=== PATIENT | female | born 1980 | race Caucasian/White ===

== ENCOUNTER → 2016-08-22 | Outpatient (CLI) | payer BC ==
[~2016-08-22] MED LIST: CETI10TA84 PO; CHOL1TAB42 PO; CYAN10004 PO; FERR1TAB13 PO; FLUT0.15 INH; HYDR25TA4 PO; OXYC-57 PO; OXYC7.5T65 PO; POTA10CA28 PO; TAMS0.4C38 PO
--- NOTE | 2016-08-22 08:48 | DIAGNOSTIC IMAGING REPORT ---
KUB CLINICAL HISTORY: N20.0 Nephrolithiasis COMPARISON STUDY: 08/07/2016 FINDINGS: There are innumerable bilateral renal calculi. The previous identified calcification with thin the left pelvic basin is no longer visualized. This may represent a distal ureteral calculus. Other pelvic basin calcifications remain stable. There is no pathologic bowel dilatation. IMPRESSION: 1. Bilateral nephrolithiasis 2. The previously identified distal left ureteral calculus is no longer visualized Electronically signed by: Dionisio Bolivar M.D. 08/22/2016 8:46 AM
== END | disposition home or self-care (01) ==
LOC: C.RAD 08:16
PROVIDERS: ATTEND Urology
DX: N20.0 Calculus of kidney (principal)

== ENCOUNTER → 2017-02-26 | Outpatient (CLI) | payer BC ==
--- NOTE | 2017-02-26 09:18 | DIAGNOSTIC IMAGING REPORT ---
KUB CLINICAL HISTORY: Nephrolithiasis. Urinary tract infection. FINDINGS: 2 AP supine abdominal radiographs are compared to study dated 08/22/2016 and correlated with abdominal CT dated 11/25/2014. There are numerous (greater than 20) small bilateral nonobstructing renal calculi. The largest stone is on the left an measures up to 7 mm. A 5 mm calcification in the right pelvis projecting over the right vesicoureteral junction was not seen on 08/22/2016. Additional pelvic phleboliths are similar to previous. There is a nonobstructed abdominal bowel gas pattern. Moderate constipation is observed. The bony structures appear intact. IMPRESSION: 1. There are numerous bilateral nonobstructing renal calculi, similar in appearance to prior studies. 2. There is a 5 mm calcification projecting over the right vesicoureteral junction. This is new from 08/22/2016 and likely represents a distal right ureteral stone. Correlation with clinical findings and urinalysis will be required. Electronically signed by: Ulises Huang M.D. 02/26/2017 9:17 AM Dictated Date/Time: 02/26/2017 9:13 AM
--- NOTE | 2017-02-26 10:54 | DIAGNOSTIC IMAGING REPORT ---
TWO VIEW CHEST CLINICAL HISTORY: Preoperative examination. Nephrolithiasis. FINDINGS: PA and lateral chest radiographs are compared to study dated 01/30/2016. The cardiomediastinal silhouette is unremarkable. The lungs and pleural spaces are clear. There is no pneumothorax. The bony thorax appears intact. Cholecystectomy clips are identified in the right upper quadrant. IMPRESSION: No active disease in the chest. Electronically signed by: Ulises Huang M.D. 02/26/2017 10:53 AM Dictated Date/Time: 02/26/2017 10:52 AM
== END | disposition home or self-care (01) ==
LOC: C.RAD 08:30
PROVIDERS: ATTEND Urology
DX: N39.0 Urinary tract infection, site not specified (principal); N20.0 Calculus of kidney

== ENCOUNTER → 2017-02-26 | Outpatient (CLI) | payer BC ==
[2017-02-26 12:21] LABS: BASO % 0.5 %; BASO ABS # 0.04 K/uL (0-0.2); COMPLETE YES; EOS % 2.2 %; HEMATOCRIT 41.3 % (37-47); IG% 0.3 %; LYMPH ABS # 2.43 K/uL (1.2-3.4); MEAN CELL VOLUME 85.5 fL (80-100); MEAN CORPUSCULAR HEMOGLOBIN 29.6 pg (25-34); MEAN CORPUSCULAR HGB CONC 34.6 g/dl (32-36); MEAN PLATELET VOLUME 10.2 fL (7.4-10.4); MONO % 8.2 %; NEUT % 57.8 %; PLATELET COUNT 317 K/uL (130-400); RED BLOOD COUNT 4.83 M/uL (4.2-5.4); WHITE BLOOD COUNT 7.84 K/uL (4.8-10.8)
[2017-02-26 12:58] LABS: BLOOD UREA NITROGEN 14 mg/dl (7-18); BUN/CREATININE RATIO 23.2 (10-20); CALCIUM 9.4 mg/dl (8.5-10.1); CARBON DIOXIDE 29 mmol/L (21-32); CHLORIDE 102 mmol/L (98-107); CREATININE 0.61 mg/dl (0.60-1.20); GLUCOSE 71 mg/dl (70-99); POTASSIUM 3.7 mmol/L (3.5-5.1); SODIUM 138 mmol/L (136-145)
== END | disposition home or self-care (01) ==
LOC: C.CPL 10:13
PROVIDERS: ATTEND Urology
DX: N20.0 Calculus of kidney (principal); N39.0 Urinary tract infection, site not specified

== ENCOUNTER → 2017-03-01 | Day surgery (SDC) | payer BC ==
[2017-02-26 11:00] VITALS: Ht 175.3 cm; Wt 88.2 kg
[~2017-03-01] VITALS: Ht 175.3 cm; Wt 88.2 kg
[~2017-03-01] MED LIST changes: +ATROPINE SULFATE 0.1 MG/ML 5ML SYR IV PRN; +CIPROFLOXACIN 400MG / D5W IV SCH; +DEXAMETHASONE SOD INJ 4 MG/ML VIAL ONE; +EpHEDrine SULFATE INJ 50 MG/ML AMP IV PRN; +FENTANYL CITRATE INJ 50 MCG/1 ML 2 ML VIAL IV PRN; +FENTANYL CITRATE INJ 50 MCG/1 ML 2 ML VIAL ONE; +LACTATED RINGER'S 1000ML 1,000 ML IV SCH; +LIDOCAINE HCL 2% 2 ML VIAL (20MG/ML) ONE; +MIDAZOLAM HCL 1 MG/ML 2ML VIAL ONE; +ONDANSETRON INJ 2 MG/ML 2 ML VIAL IV PRN; +ONDANSETRON INJ 2 MG/ML 2 ML VIAL ONE; -OXYC-57 PO; +OXYCODONE/ACETAMINOPHEN 5-325 TAB PO PRN; -POTA10CA28 PO; +PROMETHAZINE HCL INJ 6.25 MG in SODIUM CHLORIDE 0.9% 50ML 50 ML IV PRN; +PROPOFOL IV EMULSION 10 MG/ML 20 ML VIAL IV ONE
--- NOTE | 2017-03-01 08:56 | DIAGNOSTIC IMAGING REPORT ---
KUB CLINICAL HISTORY: N20.0 [id number] COMPARISON STUDY: 02/26/2017 FINDINGS: There are innumerable bilateral renal calculi. There is no pathologic bowel dilatation. Pelvic basin calcifications remain similar in orientation to the prior study. As was previously stated, there is a 5 mm right pelvic basin calcification which was not present in August 2016. This may represent a distal right ureteral calculus. IMPRESSION: 1. Bilateral nephrolithiasis 2. Possible 5 mm distal right ureteral calculus Electronically signed by: Dionisio Bolivar M.D. 03/01/2017 8:55 AM Dictated Date/Time: 03/01/2017 8:53 AM
--- NOTE | 2017-03-01 09:15 | History & Physical Bridge Note ---
H&P Re-Evaluation Bridge Note: I have examined the patient, reviewed the History & Physical and in the interval since the performance of the History & Physical I have noted the following changes of clinical significance: No changes noted
--- NOTE | 2017-03-01 09:30 | [facility] Operative Report ---
Operative Report Operative Date Mar 01, 2017. Pre-Operative Diagnosis R distal ureteral stone, bilateral nonobstructive renal stones Post-Operative Diagnosis Same Procedure(s) Performed R distal ureteral ESWL Surgeon Darren Alcaraz Stripper And Opaquer Apprentice Surgeon(s) NA Estimated Blood Loss NA Findings Fair stone fragmentation on fluoro Specimens NA Drains NA Anesthesia GALMA Disposition Recovery Room / PACU Indications R distal ureteral stone Description of Procedure The patient was brought to the litho suite. He was correctly identified and the stone was visualized on his most recent x-rays. After the correct time out was performed the patient was positioned over the therapy head. An adequate level of anesthesia was administered. The extracorporeal shockwave lithotripsy treatment was then commenced. Please see the [place] [facility] Stone Management sheet for complete treatment summary. After completion of the procedure the patient was taken to the recovery room in stable condition. I attest to the content of the Intraoperative Record and any orders documented therein. Any exceptions are noted below. I attest to the content of the Intraoperative Record and any orders documented therein. Any exceptions are noted below.
--- NOTE | 2017-03-01 09:31 | Discharge Instructions ---
Discharge Instructions Date of Service Mar 01, 2017. Admission Reason for Admission: Stones Discharge Discharge Diagnosis / Problem: R distal ureteral stone s/p ESWL Discharge Goals Goal(s): Decrease discomfort, Improve function, Improve disease control, Therapeutic intervention Activity Recommendations Activity Limitations: as noted below Lifting Limitations: no more than 25 pounds, gradually increase as tolerated ( x 3 days) Exercise/Sports Limitations: rest today, gradually increase as tolerated (x 3 days) May Resume Sexual Activity: when tolerated Shower/Bathe: no limitations Driving or Machine Use: resume 1 day after discharge . Instructions / Follow-Up Instructions / Follow-Up Strain urine, bring fragments into postop visit Follow-up in office as scheduled, KUB Xray before visit as ordered Call office with questions Discharge Diet Recommended Diet: Regular Diet (good fluid intake) Procedures Procedures Performed: R distal ureteral ESWL Pending Studies Studies pending at discharge: no Medical Emergencies . Who to Call and When: Medical Emergencies: If at any time you feel your situation is an emergency, please call 911 immediately. . Non-Emergent Contact Non-Emergency issues call your: Urologist Call Non-Emergent contact if: you have a fever, temperature is above 101, your pain is not controlled, your pain is worsening, your pain is unusual for you, your pain is concerning you, you have any medication questions . . "Provider Documentation" section prepared by Gonzalo Banks. . VTE Core Measure Inpt VTE Proph given/why not?: [facility] [place] Drug Monitoring Program Search Results: patient reviewed within database, see additional documentation (last Rx at [facility] in Jul 2016)
--- NOTE | 2017-03-01 11:13 | [facility] Post Operative Brief Note ---
Immediate Operative Summary Operative Date Mar 01, 2017. Pre-Operative Diagnosis Right Renal Stone Post-Operative Diagnosis Same Procedure(s) Performed Right Extracorporeal Shock Wave Lithotripsy Surgeon Dr Nay Banks Freelance Digital Project Manager Surgeon(s) None Estimated Blood Loss 0 ml Findings Fair stone fragmentation on fluoro Specimens None Drains NA Anesthesia GALMA Complication(s) None Disposition Recovery Room / PACU
[2017-03-01 12:12] VITALS: TEMP 36.3
[2017-03-01 12:47] VITALS: BP 114/80; PULSE 61; O2SAT 100
--- NOTE | 2017-03-01 12:51 | Anesthesia Progress Nt - [facility] ---
Anesthesia Post Op Note Date & Time Mar 01, 2017 at 12:51 Vital Signs Pain Intensity: 4.0 Vital Signs Past 12 Hours Date Time Temp Pulse Resp B/P (MAP) Pulse Ox O2 Delivery O2 Flow Rate FiO2 03/01/17 12:47 61 16 114/80 (91) 100 Room Air 03/01/17 12:12 36.3 62 16 117/76 (90) 100 Room Air 03/01/17 12:08 62 85 03/01/17 12:08 62 03/01/17 12:06 124/73 03/01/17 12:04 36.5 99 Room Air 03/01/17 12:03 64 1 100 03/01/17 12:03 64 1 03/01/17 12:02 69 4 100 03/01/17 12:02 67 4 03/01/17 12:01 113/72 03/01/17 11:57 57 3 03/01/17 11:57 57 3 99 03/01/17 11:56 116/72 03/01/17 11:52 56 0 03/01/17 11:52 57 0 100 03/01/17 11:51 122/70 03/01/17 11:49 58 0 03/01/17 11:49 59 0 100 03/01/17 11:46 116/87 03/01/17 11:44 61 0 100 03/01/17 11:44 62 0 03/01/17 11:41 116/80 03/01/17 11:39 58 0 03/01/17 11:39 58 0 100 03/01/17 11:36 114/76 03/01/17 11:35 111/75 03/01/17 11:34 36.1 75 12 111/75 100 Mask 6 03/01/17 11:34 69 100 03/01/17 11:34 69 03/01/17 09:21 36.7 77 18 115/79 (91) 99 Room Air Notes Mental Status: alert / awake / arousable, participated in evaluation Pt Amnestic to Procedure: Yes Nausea / Vomiting: adequately controlled Pain: adequately controlled Airway Patency, RR, SpO2: stable & adequate BP & HR: stable & adequate Hydration State: stable & adequate Anesthetic Complications: no major complications apparent
== END | disposition home or self-care (01) ==
LOC: X.SURG 08:56
PROVIDERS: ATTEND Urology
DX: N20.2 Calculus of kidney with calculus of ureter (principal); Z87.440 Personal history of urinary (tract) infections; Q61.5 Medullary cystic kidney; Z86.32 Personal history of gestational diabetes; Z90.49 Acquired absence of other specified parts of digestive tract; Z90.710 Acquired absence of both cervix and uterus; Z98.84 Bariatric surgery status; Z84.1 Family history of disorders of kidney and ureter

== ENCOUNTER → 2017-03-12 | Outpatient (CLI) | payer BC ==
[~2017-03-12] MED LIST changes: -ATROPINE SULFATE 0.1 MG/ML 5ML SYR IV PRN; -CIPROFLOXACIN 400MG / D5W IV SCH; -DEXAMETHASONE SOD INJ 4 MG/ML VIAL ONE; -EpHEDrine SULFATE INJ 50 MG/ML AMP IV PRN; -FENTANYL CITRATE INJ 50 MCG/1 ML 2 ML VIAL IV PRN; -FENTANYL CITRATE INJ 50 MCG/1 ML 2 ML VIAL ONE; -LACTATED RINGER'S 1000ML 1,000 ML IV SCH; -LIDOCAINE HCL 2% 2 ML VIAL (20MG/ML) ONE; -MIDAZOLAM HCL 1 MG/ML 2ML VIAL ONE; -ONDANSETRON INJ 2 MG/ML 2 ML VIAL IV PRN; -ONDANSETRON INJ 2 MG/ML 2 ML VIAL ONE; +OXYC-57 PO; -OXYCODONE/ACETAMINOPHEN 5-325 TAB PO PRN; +POTA10CA28 PO; -PROMETHAZINE HCL INJ 6.25 MG in SODIUM CHLORIDE 0.9% 50ML 50 ML IV PRN; -PROPOFOL IV EMULSION 10 MG/ML 20 ML VIAL IV ONE
--- NOTE | 2017-03-12 18:25 | DIAGNOSTIC IMAGING REPORT ---
KUB CLINICAL HISTORY: 36 years-old Female presenting with N20.0 Nephrolithiasis. TECHNIQUE: Single supine view of the abdomen was obtained. COMPARISON: 03/01/2017. FINDINGS: Examination for calcification is degraded by moderate stool burden throughout the colon. Again demonstrated are multiple calcifications in the bilateral kidneys, unchanged in distribution. Previously noted calcification in the region of the right ureterovesical junction is no longer present. No new calcification along the course of the ureters. Multiple phleboliths noted in the right hemipelvis. Osseous structures normal. IMPRESSION: 1. Bilateral nephrolithiasis. 2. Previously noted calcification in the region of the right ureterovesical junction is no longer present suggesting passage of a right ureteral calculus. Electronically signed by: Felice Gregorio M.D. 03/12/2017 6:24 PM Dictated Date/Time: 03/12/2017 6:21 PM
[2017-03-12 19:04] LABS: MANUAL MICROSCOPIC REQUIRED? NO; REVIEW REQ? NO; URINE APPEARANCE CLEAR (CLEAR); URINE BILIRUBIN NEG (NEG); URINE COLOR YELLOW; URINE EPITHELIAL CELL AUTO >30 /lpf (0-5); URINE NITRITE NEG (NEG); UROBILINOGEN NEG (NEG)
[2017-03-12 19:22] LABS: BLOOD UREA NITROGEN 16 mg/dl (7-18); CALCIUM 9.2 mg/dl (8.5-10.1); CARBON DIOXIDE 24 mmol/L (21-32); CHLORIDE 104 mmol/L (98-107); CREATININE 0.86 mg/dl (0.60-1.20); GLUCOSE 135 mg/dl (70-99); PHOSPHORUS 2.5 mg/dl (2.5-4.9); SODIUM 138 mmol/L (136-145)
== END | disposition home or self-care (01) ==
LOC: C.LAB 17:35
PROVIDERS: ATTEND Internal Medicine Nephrology
DX: N20.0 Calculus of kidney (principal)

== ENCOUNTER → 2017-03-15 | Outpatient (CLI) | payer BC ==
[~2017-03-15] MED LIST changes: -OXYC7.5T65 PO
--- NOTE | 2017-03-15 10:04 | DIAGNOSTIC IMAGING REPORT ---
KUB CLINICAL HISTORY: Nephrolithiasis. FINDINGS: 2 AP supine abdominal radiographs are compared to study dated 03/12/2017 and correlated with abdominal CT dated 11/25/2014. There are numerous (greater than 20) small bilateral nonobstructing renal calculi. The largest stone is on the left and measures up to 6 mm. No calcifications are seen projecting along the course of the ureters. Pelvic phleboliths are similar to previous. There is a nonobstructed abdominal bowel gas pattern. Moderate constipation is observed. The bony structures appear intact. IMPRESSION: 1. There are numerous bilateral nonobstructing renal calculi, similar in appearance to prior studies. 2. There is no radiographic evidence of ureteral stone. Electronically signed by: Ulises Huang M.D. 03/15/2017 10:03 AM Dictated Date/Time: 03/15/2017 9:58 AM
== END | disposition home or self-care (01) ==
LOC: C.RAD 09:21
PROVIDERS: ATTEND Urology
DX: N20.0 Calculus of kidney (principal)

== ENCOUNTER → 2017-03-15 | Day surgery (SDC) | payer BC ==
[2017-03-14 11:57] VITALS: Ht 175.3 cm; Wt 88.2 kg
[~2017-03-15] VITALS: Ht 175.3 cm; Wt 88.2 kg
[~2017-03-15] MED LIST changes: +ATROPINE SULFATE 0.1 MG/ML 5ML SYR IV PRN; +CIPROFLOXACIN 400MG / D5W IV SCH; +DEXAMETHASONE SOD INJ 4 MG/ML VIAL ONE; +EpHEDrine SULFATE INJ 50 MG/ML AMP IV PRN; +FENTANYL CITRATE INJ 50 MCG/1 ML 2 ML VIAL IV PRN; +FENTANYL CITRATE INJ 50 MCG/1 ML 2 ML VIAL ONE; +FLUMAZENIL 0.1 MG/1 ML 10 ML VIAL IV PRN; +HYDROmorphone INJ 2 MG/ML SYR/VIAL IV PRN; +LABETALOL HCL IV 5 MG/ML 20ML IV PRN; +LACTATED RINGER'S 1000ML 1,000 ML IV SCH; +LIDOCAINE HCL 2% 2 ML VIAL (20MG/ML) ONE; +MEPERIDINE HCL 25 MG/ML CARP IV PRN; +MIDAZOLAM HCL 1 MG/ML 2ML VIAL ONE; +NALOXONE HCL 0.4 MG/1 ML VIAL/CARP IV PRN; +ONDANSETRON INJ 2 MG/ML 2 ML VIAL IV PRN; +ONDANSETRON INJ 2 MG/ML 2 ML VIAL ONE; +OXYCODONE/ACETAMINOPHEN 5-325 TAB PO PRN; +PHENYLEPHRINE 100MCG/ML 5ML SYR IV PRN; +PROPOFOL IV EMULSION 10 MG/ML 20 ML VIAL IV ONE
[2017-03-15 11:54] LABS: BUN/CREATININE RATIO 16.5 (10-20); CALCIUM 9.1 mg/dl (8.5-10.1); CREATININE 0.69 mg/dl (0.60-1.20); POTASSIUM 3.3 mmol/L (3.5-5.1)
--- NOTE | 2017-03-15 12:58 | [facility] Operative Report ---
Operative Report Operative Date Mar 15, 2017. Pre-Operative Diagnosis LEFT RENAL STONES Post-Operative Diagnosis SAME Procedure(s) Performed LEFT ESWL Surgeon FREDI Seam Rubbing Machine Operator Surgeon(s) NONE Estimated Blood Loss NONE Findings BILATERAL RENAL STONES Specimens NONE Drains NONE Anesthesia GENRERAL Complication(s) None Disposition Recovery Room / PACU Indications BILATERAL STONES FOR ESWL ON LEFT Description of Procedure Patient was identified in the preoperative holding area, appropriate informed consent was reviewed and completed and the patient was transported to the operating suite. Upon arrival appropriate preoperative antibiotics were administered and general anesthesia induced. The patient was placed in supine position and the stone was localized under fluoroscopy. A total of [__2500_] shocks were delivered to the stone. There appeared to be good fragmentation of the stone. Details of this procedure can be found on the [place] [facility] Stone Management information sheet. At the conclusion of the case the patient was extubated and taken to the PACU in stable condition. There were no complications. I attest to the content of the Intraoperative Record and any orders documented therein. Any exceptions are noted below.
--- NOTE | 2017-03-15 13:00 | Discharge Instructions-SurgCtr ---
Discharge Instructions Date of Service Mar 15, 2017. Visit Reason for Visit: Stones Discharge Discharge Diagnosis / Problem: STONES Discharge Goals Goal(s): Therapeutic intervention Activity Recommendations Activity Limitations: resume your previous activity (TAKE IT EASY TODAY) Anesthesia . Post Anesthesia Instructions: If you have had General Anesthesia or IV Sedation: * Do not drive today. * Resume driving when surgeon permits. * Do not make important decisions or sign legal documents today. * Call surgeon for: 1. Temperature elevations greater than 101 degrees F. 2. Uncontrollable pain. 3. Excessive bleeding. 4. Persistent nausea and vomiting. 5. Medication intolerance (nausea, vomiting or rash). * For nausea and vomiting use only clear liquids such as: tea, soda, bouillon until nausea subsides, then gradually increase diet as tolerated. * If you have any concerns or questions, call your surgeon's office. If physician is unavailable and it is an emergency, call 911 or go to the nearest emergency room. . Instructions / Follow-Up Instructions / Follow-Up MEDICATIONS: Resume previous medications unless instructed otherwise by your surgeon. Resume pre-ESWL medication except for aspirin, coumadin or other blood thinners. __ Toradol 10 mg every 6 hours for initial pain. __ Lortab 5 mg 1-2 every 4 hours for pain. _X_ Percocet 5 mg 1-2 every 4 hours for pain. __ Macrodantin 50 mg x 3 a day. __ Flomax 1 tab daily one half (1/2) hour after supper. SPECIAL CARE INSTRUCTIONS: 1. Get KUB (x-ray) _X_ day before or day of office visit and bring x-ray to office __ get x-ray 2 days before and tell office you are getting x-rays when you call for the appointment. 2. Strain ALL urine. 3. Please call if you have a fever, chills, severe pain, or constant dribbling of urine. 4. Office phone number . FOLLOW UP VISIT: Please call the office to schedule a follow-up appointment at . Diet Recommendations Home Diet: resume previous diet Procedures Procedures Performed: LEFT ESWL Pending Studies Studies pending at discharge: no Medical Emergencies . Who to Call and When: Medical Emergencies: If at any time you feel your situation is an emergency, please call 911 immediately. . Non-Emergent Contact Non-Emergency issues call your: Urologist Call Non-Emergent contact if: temperature is above 101.5, your pain is not controlled . . "Provider Documentation" section prepared by Tobi Jones. . [place] Drug Monitoring Program Search Results: patient reviewed within database
[2017-03-15 14:08] VITALS: TEMP 36.6
--- NOTE | 2017-03-15 14:11 | Anesthesia Progress Nt - [facility] ---
Anesthesia Post Op Note Date & Time Mar 15, 2017 at 14:11 Vital Signs Pain Intensity: 0 Vital Signs Past 12 Hours Date Time Temp Pulse Resp B/P (MAP) Pulse Ox O2 Delivery O2 Flow Rate FiO2 03/15/17 14:01 36.6 76 16 120/75 (94) 100 Room Air 03/15/17 13:56 68 17 03/15/17 13:56 69 17 119/78 99 03/15/17 13:51 69 14 123/68 98 03/15/17 13:51 70 14 03/15/17 13:46 91 15 03/15/17 13:46 89 15 137/86 99 03/15/17 13:41 69 13 126/66 100 03/15/17 13:41 69 13 03/15/17 13:36 70 13 124/64 100 03/15/17 13:36 69 13 03/15/17 13:35 74 14 99 03/15/17 13:35 74 14 03/15/17 13:31 119/75 03/15/17 13:30 36.5 78 16 119/75 100 Mask 5 03/15/17 11:01 36.9 67 16 104/79 (87) 100 Room Air Notes Mental Status: alert / awake / arousable, participated in evaluation Pt Amnestic to Procedure: Yes Nausea / Vomiting: adequately controlled Pain: adequately controlled Airway Patency, RR, SpO2: stable & adequate BP & HR: stable & adequate Hydration State: stable & adequate Anesthetic Complications: no major complications apparent
[2017-03-15 14:33] VITALS: BP 121/84; PULSE 76; O2SAT 100
== END | disposition home or self-care (01) ==
LOC: X.SURG 10:30
PROVIDERS: ATTEND Urology
DX: N20.0 Calculus of kidney (principal); Q61.5 Medullary cystic kidney; E87.6 Hypokalemia; N39.0 Urinary tract infection, site not specified; Z90.49 Acquired absence of other specified parts of digestive tract; Z98.84 Bariatric surgery status; Z90.710 Acquired absence of both cervix and uterus; Z98.51 Tubal ligation status; Z84.2 Family history of other diseases of the genitourinary system; Z84.1 Family history of disorders of kidney and ureter

== ENCOUNTER → 2017-03-26 | Outpatient (CLI) | payer BC ==
[~2017-03-26] MED LIST changes: -ATROPINE SULFATE 0.1 MG/ML 5ML SYR IV PRN; -CIPROFLOXACIN 400MG / D5W IV SCH; -DEXAMETHASONE SOD INJ 4 MG/ML VIAL ONE; -EpHEDrine SULFATE INJ 50 MG/ML AMP IV PRN; -FENTANYL CITRATE INJ 50 MCG/1 ML 2 ML VIAL IV PRN; -FENTANYL CITRATE INJ 50 MCG/1 ML 2 ML VIAL ONE; -FERR1TAB13 PO; -FLUMAZENIL 0.1 MG/1 ML 10 ML VIAL IV PRN; -HYDROmorphone INJ 2 MG/ML SYR/VIAL IV PRN; -LABETALOL HCL IV 5 MG/ML 20ML IV PRN; -LACTATED RINGER'S 1000ML 1,000 ML IV SCH; -LIDOCAINE HCL 2% 2 ML VIAL (20MG/ML) ONE; -MEPERIDINE HCL 25 MG/ML CARP IV PRN; -MIDAZOLAM HCL 1 MG/ML 2ML VIAL ONE; -NALOXONE HCL 0.4 MG/1 ML VIAL/CARP IV PRN; -ONDANSETRON INJ 2 MG/ML 2 ML VIAL IV PRN; -ONDANSETRON INJ 2 MG/ML 2 ML VIAL ONE; -OXYCODONE/ACETAMINOPHEN 5-325 TAB PO PRN; -PHENYLEPHRINE 100MCG/ML 5ML SYR IV PRN; -PROPOFOL IV EMULSION 10 MG/ML 20 ML VIAL IV ONE
--- NOTE | 2017-03-26 08:59 | DIAGNOSTIC IMAGING REPORT ---
KUB CLINICAL HISTORY: N20.0 [id number] COMPARISON STUDY: 03/15/2017 FINDINGS: There are in numerable bilateral renal calculi. No calcifications along the course of either ureter are visualized. Pelvic basin calcifications remain unchanged. These therefore likely represent phleboliths. An equivocal new left pelvic basin calcification is not confirmed on a spot film the pelvis and therefore likely represents overlying enteric contents IMPRESSION: Innumerable bilateral renal calculi. Electronically signed by: Dionisio Bolivar M.D. 03/26/2017 8:58 AM Dictated Date/Time: 03/26/2017 8:56 AM
== END | disposition home or self-care (01) ==
LOC: C.RAD 08:37
PROVIDERS: ATTEND Urology
DX: N20.0 Calculus of kidney (principal)

== ENCOUNTER → 2017-10-04 | Outpatient (CLI) | payer BC ==
[~2017-10-04] MED LIST changes: -OXYC-57 PO
--- NOTE | 2017-10-04 10:05 | DIAGNOSTIC IMAGING REPORT ---
L-SPINE MIN 4 VIEWS ROUTINE HISTORY: Pain LOW BACK PAIN COMPARISON: None. FINDINGS: There is no fracture. No subluxation. Disc spaces are preserved. Note is made of bilateral nephrocalcinosis. IMPRESSION: No fracture or subluxation within the lumbar spine. Negative study of the lumbar spine. Bilateral nephrocalcinosis The above report was generated using voice recognition software. It may contain grammatical, syntax or spelling errors. Electronically signed by: Mushtaq Cain M.D. 10/04/2017 10:03 AM Dictated Date/Time: 10/04/2017 10:02 AM
== END ==
LOC: C.RAD 09:30
PROVIDERS: ATTEND Family Medicine
DX: M54.5 Low back pain (principal); E83.59 Other disorders of calcium metabolism; N29 Other disorders of kidney and ureter in diseases classified elsewhere

== ENCOUNTER → 2017-12-12 | Outpatient (CLI) | payer BC ==
--- NOTE | 2017-12-12 10:35 | DIAGNOSTIC IMAGING REPORT ---
ULTRASOUND OF THE PELVIS CLINICAL HISTORY: Ovarian cyst. Pelvic pain. COMPARISON STUDY: Pelvic ultrasound dated 02/01/2016. TECHNIQUE: Real-time, grayscale, and color flow sonography of the pelvis is performed both transabdominally and endovaginally. Images are reviewed in the transverse and longitudinal planes. FINDINGS: Uterus: The uterus is surgically absent Ovaries: The ovaries are normal in size and morphology. The right ovary measures 4.7 x 3.2 x 4.6 cm and the left ovary measures 3.9 x 2.6 x 4.8 cm. There are bilateral ovarian follicles. No cyst is identified. Normal Doppler waveforms are shown within both ovaries. Pelvis: There is no free fluid in the cul-de-sac. No concerning adnexal lesion is seen. IMPRESSION: 1. No acute sonographic abnormality is identified in the pelvis. No ovarian cyst is seen. 2. Status post hysterectomy. Electronically signed by: Ulises Huang M.D. 12/12/2017 10:33 AM Dictated Date/Time: 12/12/2017 10:31 AM
== END | disposition home or self-care (01) ==
LOC: C.ULTR 09:39
PROVIDERS: ATTEND Family Medicine
DX: N83.201 Unspecified ovarian cyst, right side (principal); Z90.710 Acquired absence of both cervix and uterus

== ENCOUNTER → 2018-01-08 | Outpatient (CLI) | payer BC ==
--- NOTE | 2018-01-08 17:07 | DIAGNOSTIC IMAGING REPORT ---
(RENAL)RETROPERITON COMP CLINICAL HISTORY: 37 years-old Female presenting with NEPHROLITHIASIS. TECHNIQUE: Real-time grayscale and limited color Doppler ultrasound imaging of the kidneys and bladder was performed. COMPARISON: Plain radiograph from earlier the same day. FINDINGS: Right kidney: Hyperechogenicity of medullary pyramids. Right kidney measures 13.2 cm. Mild pelviectasis. No convincing evidence of calculus or mass. Left kidney: Hyperechogenicity of medullary pyramids. Left kidney measures 14.2 cm. Mild pelviectasis. The proximal left ureter is also mildly prominent measuring 8 mm in AP dimension. No convincing evidence of calculus or mass. Bladder: Normal. Bilateral ureteral jets present. Other: None. IMPRESSION: 1. Medullary nephrocalcinosis. This can be seen in the setting of hyperparathyroidism, medullary sponge kidney, type I renal tubular acidosis, milk alkali syndrome, sarcoidosis, and additional etiologies. Electronically signed by: Felice Gregorio M.D. 01/08/2018 5:06 PM Dictated Date/Time: 01/08/2018 5:01 PM
[2018-01-08 17:41] LABS: BASO % 0.3 %; BASO ABS # 0.02 K/uL (0-0.2); EOS % 2.5 %; EOS ABS # 0.18 K/uL (0-0.5); HEMATOCRIT 39.2 % (37-47); HEMOGLOBIN 13.5 g/dL (12.0-16.0); IG# 0.02 K/uL (0.00-0.02); LYMPH % 35.9 %; LYMPH ABS # 2.55 K/uL (1.2-3.4); MEAN CELL VOLUME 87.1 fL (80-100); MEAN CORPUSCULAR HGB CONC 34.4 g/dl (32-36); MEAN PLATELET VOLUME 10.1 fL (7.4-10.4); MONO % 5.3 %; MONO ABS # 0.38 K/uL (0.11-0.59); NEUT % 55.7 %; NEUT ABS # 3.96 K/uL (1.4-6.5); PLATELET COUNT 277 K/uL (130-400); RED CELL DISTRIBUTION WIDTH CV 12.5 % (11.5-14.5); WHITE BLOOD COUNT 7.11 K/uL (4.8-10.8)
[2018-01-08 18:10] LABS: BLOOD UREA NITROGEN 13 mg/dl (7-18); CALCIUM 8.9 mg/dl (8.5-10.1); CARBON DIOXIDE 27 mmol/L (21-32); CREATININE 0.71 mg/dl (0.60-1.20); GLUCOSE 100 mg/dl (70-99); POTASSIUM 3.5 mmol/L (3.5-5.1); SODIUM 138 mmol/L (136-145)
== END | disposition home or self-care (01) ==
LOC: C.ULTR 15:59
PROVIDERS: ATTEND Urology
DX: N20.0 Calculus of kidney (principal)

== ENCOUNTER → 2018-01-08 | Outpatient (CLI) | payer BC ==
--- NOTE | 2018-01-08 09:02 | DIAGNOSTIC IMAGING REPORT ---
KUB HISTORY: Follow-up study in a patient with history of nephrolithiasis N20.0 Nephrolithiasis COMPARISON: KUB 03/26/2017, lumbar spine radiographs 10/04/2017. FINDINGS: The bowel gas pattern is non-obstructive. There is no organomegaly. Multiple bilateral nephrolithiasis redemonstrated with calculi measuring up to 5 mm within the inferior pole left kidney. Calcifications about the right hemipelvis are unchanged suggesting phleboliths. There is a new radiodensity about the left hemipelvis, 10 x 6 mm projecting over the distal colon. No proximal ureteral calculi identified. Right renal shadow is partially obscured by bowel gas. No pneumoperitoneum or pneumatosis. No fracture. IMPRESSION: 1. Bilateral nephrolithiasis redemonstrated. 2. New 10 x 6 mm density about the left hemipelvis may reflect distal ureteral calculus, phlebolith or stool contents. 3. Unchanged phleboliths about the right hemipelvis. Electronically signed by: Dong Casillas M.D. 01/08/2018 9:01 AM Dictated Date/Time: 01/08/2018 8:58 AM
== END | disposition home or self-care (01) ==
LOC: C.RAD 08:37
PROVIDERS: ATTEND Urology
DX: N20.0 Calculus of kidney (principal)

== ENCOUNTER → 2018-01-10 | Day surgery (SDC) | payer BC ==
[2018-01-09 10:01] VITALS: Ht 177.8 cm; Wt 91.0 kg
[~2018-01-10] VITALS: Ht 177.8 cm; Wt 91.0 kg
[~2018-01-10] MED LIST changes: +ATROPINE SULFATE 0.1 MG/ML 5ML SYR IV PRN; +CIPROFLOXACIN 400MG / D5W IV SCH; +DEXAMETHASONE SOD INJ 4 MG/ML VIAL ONE; +EpHEDrine SULFATE INJ 50 MG/ML AMP IV PRN; +FENTANYL CITRATE INJ 50 MCG/1 ML 2 ML VIAL IV PRN; +FENTANYL CITRATE INJ 50 MCG/1 ML 2 ML VIAL ONE; -HYDR25TA4 PO; +HYDROmorphone INJ 0.5 MG/0.5 ML SYR IV PRN; +LABETALOL HCL IV 5 MG/ML 20ML IV PRN; +LACTATED RINGER'S 1000ML 1,000 ML IV SCH; +LIDOCAINE HCL 2% 2 ML VIAL (20MG/ML) ONE; +MIDAZOLAM HCL 1 MG/ML 2ML VIAL ONE; +ONDANSETRON INJ 2 MG/ML 2 ML VIAL IV PRN; +ONDANSETRON INJ 2 MG/ML 2 ML VIAL ONE; +OXYC7.5T65 PO; +OXYCODONE/ACETAMINOPHEN 5-325 TAB PO PRN; +PHENYLEPHRINE 100MCG/ML 5ML SYR IV PRN; -POTA10CA28 PO; +PROMETHAZINE HCL INJ 12.5 MG in SODIUM CHLORIDE 0.9% 50ML 50 ML IV PRN; +PROPOFOL IV EMULSION 10 MG/ML 20 ML VIAL ONE
--- NOTE | 2018-01-10 08:19 | History & Physical Bridge Note ---
H&P Re-Evaluation Bridge Note: I have examined the patient, reviewed the History & Physical and in the interval since the performance of the History & Physical I have noted the following changes of clinical significance: Persistent pelvic pain, will proceed with ESWL L pelvic calcification, likely distal L ureteral stone. HM
--- NOTE | 2018-01-10 09:12 | Discharge Instructions ---
Discharge Instructions Date of Service January 10, 2018. Admission Reason for Admission: Stones Discharge Discharge Diagnosis / Problem: L distal ureteral stone s/p ESWL Discharge Goals Goal(s): Decrease discomfort, Improve function, Improve disease control, Therapeutic intervention Activity Recommendations Activity Limitations: as noted below Lifting Limitations: no more than 25 pounds, gradually increase as tolerated Exercise/Sports Limitations: rest today, gradually increase as tolerated May Resume Sexual Activity: when tolerated Shower/Bathe: tomorrow . Instructions / Follow-Up Instructions / Follow-Up Follow-up in office with KUB Xray before visit. Current Hospital Diet Patient's current hospital diet: Discharge Diet Recommended Diet: Regular Diet (good fluid intake) Procedures Procedures Performed: Left distal ureteral extracorporeal shockwave lithotripsy Pending Studies Studies pending at discharge: yes List of pending studies: KUB Xray before visit Medical Emergencies . Who to Call and When: Medical Emergencies: If at any time you feel your situation is an emergency, please call 911 immediately. . Non-Emergent Contact Non-Emergency issues call your: Urologist Call Non-Emergent contact if: you have a fever, temperature is above 101, your pain is not controlled, your pain is worsening, your pain is unusual for you, your pain is concerning you, you have any medication questions . . "Provider Documentation" section prepared by Gonzalo Banks. . [place] Drug Monitoring Program Search Results: patient reviewed within database, no issues identified
--- NOTE | 2018-01-10 10:39 | [facility] Post Operative Brief Note ---
Immediate Operative Summary Operative Date January 10, 2018. Pre-Operative Diagnosis Distal left ureteral stone Post-Operative Diagnosis Distal left ureteral stone Procedure(s) Performed Left Extracorporeal Shock Wave Lithotripsy-Ureteral Surgeon Dr. Gonzalo Banks Host Surgeon(s) None Estimated Blood Loss 0ml Findings Consistent with Post-Op Diagnosis Specimens None per surgeon Drains None Anesthesia Type General Complication(s) none Disposition Accompanied Pt To Recover: no Disposition: Recovery Room / PACU
--- NOTE | 2018-01-10 11:06 | OPERATIVE REPORT ---
DATE OF OPERATION: 01/10/2018 PREOPERATIVE DIAGNOSIS: Left distal ureteral stone. POSTOPERATIVE DIAGNOSIS: Left distal ureteral stone. PROCEDURE: Left distal ureteral extracorporeal shock wave lithotripsy. SURGEON: Dr. Gonzalo Banks. CHAINSTITCH SEWING MACHINE OPERATOR: None. ANESTHESIA: General anesthesia with laryngeal mask. COMPLICATIONS: None. FINDINGS: Excellent fragmentation of left distal ureteral stone on fluoroscopic imaging. DETAILS OF PROCEDURE: The patient was brought to the litho suite. She was correctly identified and the stone was visualized on her most recent x-rays. After the correct time out was performed the patient was positioned over the therapy head. An adequate level of anesthesia was administered. The extracorporeal shockwave lithotripsy treatment was then commenced. Please see the [place] [facility] Stone Management sheet for complete treatment summary. After completion of the procedure, the patient was taken to the recovery room in stable condition. I attest to the content of the Intraoperative Record and any orders documented therein. Any exception s are noted below.
[2018-01-10 11:35] VITALS: TEMP 36.2
[2018-01-10 12:08] VITALS: BP 120/62; PULSE 65; O2SAT 100
--- NOTE | 2018-01-10 12:42 | Anesthesia Progress Nt - [facility] ---
Anesthesia Post Op Note Date & Time January 10, 2018 at 12:42 Vital Signs Pain Intensity: 3 Vital Signs Past 12 Hours Date Time Temp Pulse Resp B/P (MAP) Pulse Ox O2 Delivery O2 Flow Rate FiO2 01/10/18 12:08 65 14 120/62 (81) 100 Room Air 01/10/18 11:35 36.2 65 14 110/74 (86) 100 Room Air 01/10/18 11:31 54 1 128/76 99 01/10/18 11:31 53 1 01/10/18 11:31 53 1 01/10/18 11:31 54 1 128/76 99 01/10/18 11:26 54 0 135/71 99 01/10/18 11:26 54 0 01/10/18 11:26 54 0 01/10/18 11:26 54 0 135/71 99 01/10/18 11:21 58 5 141/73 99 01/10/18 11:21 58 5 141/73 99 01/10/18 11:21 59 5 01/10/18 11:21 59 5 01/10/18 11:20 55 8 100 01/10/18 11:20 55 8 01/10/18 11:19 36.2 60 12 141/73 100 Room Air 01/10/18 11:16 129/76 01/10/18 11:15 53 0 100 01/10/18 11:15 54 0 01/10/18 11:11 136/75 01/10/18 11:10 54 7 01/10/18 11:10 53 7 100 01/10/18 11:06 146/76 01/10/18 11:05 56 7 01/10/18 11:05 56 7 100 01/10/18 11:01 132/80 01/10/18 11:00 56 0 99 01/10/18 11:00 57 0 01/10/18 10:56 138/82 01/10/18 10:55 57 4 01/10/18 10:55 57 4 100 01/10/18 10:51 142/78 01/10/18 10:50 58 10 100 01/10/18 10:50 59 10 01/10/18 10:46 139/84 01/10/18 10:45 36.1 62 16 139/84 100 Mask 6 01/10/18 08:24 36.8 73 18 113/75 (88) 99 Room Air Notes Mental Status: alert / awake / arousable, participated in evaluation Pt Amnestic to Procedure: Yes Nausea / Vomiting: adequately controlled Pain: adequately controlled Airway Patency, RR, SpO2: stable & adequate BP & HR: stable & adequate Hydration State: stable & adequate Anesthetic Complications: no major complications apparent
== END | disposition home or self-care (01) ==
LOC: X.SURG 07:30
PROVIDERS: ATTEND Urology
DX: N20.0 Calculus of kidney (principal); Q61.5 Medullary cystic kidney; J45.909 Unspecified asthma, uncomplicated; Z86.32 Personal history of gestational diabetes; Z86.19 Personal history of other infectious and parasitic diseases; Z84.2 Family history of other diseases of the genitourinary system; Z84.1 Family history of disorders of kidney and ureter